=== PATIENT | male | born 1965 | race Caucasian/White ===

== ENCOUNTER 2019-05-05 12:23 | Emergency (ER) | payer OTHER ==
[2019-05-05 12:30] VITALS: BP 153/84; PULSE 58; TEMP 98; BMI 21.4
[2019-05-05] MEDS ORDERED: KETOROLAC TROMETHAMINE 30 MG/1 ML VIAL IM ONE (14:31)
[2019-05-05] MEDS ORDERED: diazePAM 5 MG TABLET PO ONE (14:31)
[2019-05-05] MEDS ORDERED: KETOROLAC TROMETHAMINE 30 MG/1 ML VIAL ONE (14:35)
[2019-05-05] MEDS ORDERED: diazePAM 5 MG TABLET ONE (14:36)
--- NOTE | 2019-05-05 14:37 | PDOC ---
History of Present Illness - General Chief Complaint: Back Pain Stated Complaint: BACK PAIN Time Seen by Provider: 05/05/19 13:58 History Source: Patient Exam Limitations: No Limitations - History of Present Illness Initial Comments: 05/05/19 14:32 53 year old male with medical history of asthma, bronchitis presents with reports of pain in lower back, upper right shoulder and stiffness in neck since last night. Patient reports no injuries or fall, states has history of surgery of right shoulder and right side of head from childhood when he had a fall from a building. Denies numbness or tingling in lower legs. States he took 4 tabs of advil that relieved the pain. 05/05/19 14:34 Occurred: reports: yesterday Severity: reports: moderate Pain Location: reports: back Method of Injury: Yes: unknown Modifying Factors: improves with: pain medication Loss of Consciousness: no loss of consciousness Associated Symptoms (Fall): neck pain Past History - Travel Traveled outside of the country in the last 30 days: No Close contact w/someone who was outside of country & ill: No - Past Medical History Allergies/Adverse Reactions: Allergies Allergy/AdvReac Type Severity Reaction Status Date / Time Penicillins Allergy Mild GI upset Verified 05/05/19 12:30 Home Medications: Ambulatory Orders Cyclobenzaprine HCl [Flexeril -] 5 mg PO TID #21 tablet 05/05/19 Naproxen [Naprosyn -] 500 mg PO BID #14 tablet 05/05/19 Asthma: Yes COPD: No - Psycho Social/Smoking Cessation Hx Smoking Status: Yes Smoking History: Never smoked Number of Cigarettes Smoked Daily: 5 'Breaking Loose' booklet given: 08/07/14 Hx Alcohol Use: No Drug/Substance Use Hx: No Substance Use Type: None Hx Substance Use Treatment: No Trauma Specific PMHX - Complaint Specific PMHX Arthritis: No Back Injury: No Hx Sacro Iliac Joint Dysfunction: No Review of Systems - Review of Systems Able to Perform ROS?: Yes Is the patient limited Scottish proficient: No Constitutional: No: Chills, Fever HEENTM: No: Nose Pain, Nose Congestion, Throat Pain, Throat Swelling Respiratory: No: Shortness of Breath, Wheezing Cardiac (ROS): No: Edema, Palpitations ABD/GI: No: Abdominal Distended, Constipated, Nausea, Poor Appetite Musculoskeletal: Yes: Back Pain, Neck Pain. No: Joint Pain, Muscle Pain, Muscle Weakness Integumentary: No: Bruising, Erythema Neurological: No: Numbness, Paresthesia, Weakness Psychiatric: No: Frequent Crying, Stressors Hematologic/Lymphatic: No: Blood Clots, Bleeding Diathesis *Physical Exam - Vital Signs Last Vital Signs Temp Pulse Resp BP Pulse Ox 98 F 58 L 18 153/84 100 05/05/19 12:27 05/05/19 12:27 05/05/19 12:27 05/05/19 12:27 05/05/19 12:27 - Physical Exam General Appearance: Yes: Nourished, Appropriately Dressed HEENT: positive: TMs Normal, Pharynx Normal. negative: Sinus Tenderness Neck: positive: Supple. negative: Lymphadenopathy (R), Lymphadenopathy (L) Respiratory/Chest: positive: Lungs Clear Cardiovascular: positive: Regular Rhythm, Regular Rate Gastrointestinal/Abdominal: negative: Distended, Guarding, Rebound, Hepatomegaly Musculoskeletal: positive: Normal Inspection. negative: Vertebral Tenderness Extremity: positive: Normal Capillary Refill Integumentary: negative: Jaundice, Diaphoresis, Moist Neurologic: positive: rough rounder machine II-XII NML intact, Fully Oriented Medical Decision Making - Medical Decision Making 05/05/19 14:36 53 year old male with medical history of asthma, bronchitis presents with reports of pain in lower back, upper right shoulder and stiffness in neck since last night. Patient reports no injuries or fall, states has history of surgery of right shoulder and right side of head from childhood when he had a fall from a building. Imp: back pain Plan: analgesia and muscle relaxant 05/05/19 15:49 pain much better, patient more relaxed, appears less tense 05/05/19 15:54 Discharge - Discharge Information Problems reviewed: Yes Clinical Impression/Diagnosis: Lower back pain Qualifiers: Chronicity: acute Back pain laterality: left Sciatica presence: without sciatica Qualified Code(s): M54.5 - Low back pain Condition: Good Disposition: HOME - Admission No - Additional Discharge Information Prescriptions: Cyclobenzaprine HCl [Flexeril -] 5 mg PO TID #21 tablet Naproxen [Naprosyn -] 500 mg PO BID #14 tablet - Follow up/Referral Referrals: Giovani Bauer MD [Staff Physician] - (for back evaluation) - Patient Discharge Instructions Patient Printed Discharge Instructions: Low Back Pain Additional Instructions: Activity as tolerated Take medication as prescribed. Call orthopedic for follow up appointment - Post Discharge Activity Work/Back to School Note: Back to Work
== END 2019-05-05 16:05 | disposition home or self-care (01) ==
LOC: JERFT 12:23
PROC: 3E0233Z Introduction of Anti-inflammatory into Muscle, Percutaneous Approach (ICD-10-PCS; principal; 2019-05-05)
DX: M54.5 Low back pain (principal); Z87.09 Personal history of other diseases of the respiratory system; Z88.0 Allergy status to penicillin
CPT/HCPCS: 96372; 99282-25

== ENCOUNTER 2020-10-05 06:45 | Emergency (ER) | payer OTHER ==
[2020-10-05 07:09] VITALS: BP 143/94; PULSE 65; TEMP 98.2; BMI 20.9
[2020-10-05] MEDS ORDERED: ACETAMINOPHEN/CAFFEINE/BUTALBITAL 1 TAB PO ONE (07:30)
[2020-10-05] MEDS ORDERED: KETOROLAC TROMETHAMINE 30 MG/1 ML VIAL IVPUSH ONE (07:30)
[2020-10-05] MEDS ORDERED: ACETAMINOPHEN/CAFFEINE/BUTALBITAL 1 TAB ONE (07:35)
[2020-10-05] MEDS ORDERED: KETOROLAC TROMETHAMINE 30 MG/1 ML VIAL ONE (07:35)
[2020-10-05 08:33] LABS: BASO % 0.5 % (0-2.0); EOS % 1.1 % (0-4.5); HEMATOCRIT 50.9 % (35.4-49); HEMOGLOBIN 17.4 GM/dL (11.7-16.9); MCH 32.5 pg (25.7-33.7); MCHC 34.2 g/dl (32.0-35.9); MEAN CELL VOLUME 95.1 fl (80-96); MONO % 7.8 % (3.8-10.2); NEUT % 72.6 % (42.8-82.8); PLATELET COUNT 151 10^3/uL (134-434); RBC 5.36 M/mm3 (4.00-5.60); RDW 13.1 % (11.9-15.9); WHITE BLOOD COUNT 9.7 K/mm3 (4.0-10.0)
[2020-10-05 08:51] LABS: CHLORIDE 108 mmol/L (98-107); SODIUM 139 mmol/L (136-145)
[2020-10-05 08:53] LABS: ANION GAP 5 MMOL/L (8-16); CALCIUM 9.7 mg/dL (8.5-10.1); CO2 26 mmol/L (21-32); GLUCOSE,RANDOM 95 mg/dL (74-106)
[2020-10-05 08:54] LABS: ALBUMIN 4.8 g/dl (3.4-5.0)
[2020-10-05 08:56] LABS: CREATININE 0.9 mg/dL (0.55-1.3)
[2020-10-05 08:57] LABS: SGOT/AST 20 U/L (15-37); SGPT/ALT 29 U/L (13-61)
[2020-10-05 08:58] LABS: TOT PROT 7.7 g/dl (6.4-8.2)
[2020-10-05 08:59] LABS: ALK PHOS 75 U/L (45-117)
== END 2020-10-05 10:22 ==
LOC: JER 06:45
PROC: 3E0333Z Introduction of Anti-inflammatory into Peripheral Vein, Percutaneous Approach (ICD-10-PCS; principal; 2020-10-05)
DX: G44.209 Tension-type headache, unspecified, not intractable (principal)
CPT/HCPCS: 36415; 70450-TC; 80053; 84484; 85025; 93005; 93010; 99285-25

== ENCOUNTER 2022-01-27 06:38 | Emergency (ER) | payer OTHER ==
[2022-01-27 06:51] VITALS: BP 133/91; PULSE 81; RESP 20; BMI 21.9
[2022-01-27] MEDS ORDERED: SODIUM CHLORIDE 0.9% 500 ML INFUS.BAG IV ONE (07:24)
[2022-01-27] MEDS ORDERED: ACETAMINOPHEN 1000 MG/100 ML BAG IVPB ONE (07:24)
[2022-01-27] MEDS ORDERED: METOCLOPRAMIDE HCL INJECTION 10 MG/2 ML VIAL IVPUSH ONE (07:25)
[2022-01-27] MEDS ORDERED: ACETAMINOPHEN INJECTION 100 ML IVPB ONE (07:44)
[2022-01-27] MEDS ORDERED: METOCLOPRAMIDE HCL INJECTION 10 MG/2 ML VIAL ONE (07:44)
== END 2022-01-27 09:11 | disposition home or self-care (01) ==
LOC: JER 06:38
PROC: 3E0333Z Introduction of Anti-inflammatory into Peripheral Vein, Percutaneous Approach (ICD-10-PCS; principal; 2022-01-27)
PROC: 3E033GC Introduction of Other Therapeutic Substance into Peripheral Vein, Percutaneous Approach (ICD-10-PCS; 2022-01-27)
DX: G44.89 Other headache syndrome (principal)
CPT/HCPCS: 99284-25

== ENCOUNTER 2022-09-20 11:11 | Emergency (ER) | payer OTHER ==
[2022-09-20 11:19] VITALS: TEMP 98.2; BMI 22.5
[2022-09-20] MEDS ORDERED: SODIUM CHLORIDE 1,000 ML IV STA (11:37)
[2022-09-20] MEDS ORDERED: ACETAMINOPHEN 1000 MG/100 ML BAG IVPB ONE (11:38)
[2022-09-20] MEDS ORDERED: ACETAMINOPHEN INJECTION 100 ML IVPB ONE (11:58)
[2022-09-20 12:08] LABS: BASO % 0.6 % (0-2.0); EOS % 0.6 % (0-4.5); HEMATOCRIT 44.7 % (35.4-49); HEMOGLOBIN 15.6 GM/dL (11.7-16.9); LYMPH % 20.9 % (8-40); MCH 32.8 pg (25.7-33.7); MCHC 34.9 g/dl (32.0-35.9); MEAN PLT VOLUME 8.9 fl (7.5-11.1); MONO % 7.5 % (3.8-10.2); NEUT % 70.4 % (42.8-82.8); PLATELET COUNT 142 10^3/uL (134-434); RBC 4.76 M/mm3 (4.00-5.60); WHITE BLOOD COUNT 8.7 K/mm3 (4.0-10.0)
[2022-09-20 12:18] LABS: INR 1.14 (0.83-1.09); PROTHROMBIN TIME (PATIENT) 13.2 SEC (9.7-13.0)
[2022-09-20 12:20] LABS: POTASSIUM 4.1 mmol/L (3.5-5.1)
[2022-09-20 12:21] LABS: ACTIVATED PTT 28.6 SECONDS (25.2-36.5)
[2022-09-20 12:22] LABS: CALCIUM 9.5 mg/dL (8.5-10.1)
[2022-09-20 12:23] LABS: BLOOD UREA NITROGEN 20.2 mg/dL (7-18); MAGNESIUM 2.1 mg/dL (1.8-2.4)
[2022-09-20 12:26] LABS: CREATININE 0.9 mg/dL (0.55-1.3)
[2022-09-20 12:27] LABS: BILIRUBIN,TOTAL 0.6 mg/dL (0.2-1); TOT PROT 6.8 g/dl (6.4-8.2)
[2022-09-20] MEDS ORDERED: LIDOCAINE 5% TOPICAL PATCH TP ONE (13:54)
[2022-09-20] MEDS ORDERED: LIDOCAINE 5% TOPICAL PATCH ONE (14:08)
[2022-09-20 14:09] VITALS: BP 115/91; PULSE 54; RESP 16
[2022-09-20 14:48] LABS: PH,URINE 5.5 (5.0-8.0); URINE APPEARANCE CLEAR; URINE BILIRUBIN NEGATIVE (NEGATIVE); URINE COLOR YELLOW; URINE GLUCOSE (UA) NEGATIVE (NEGATIVE); URINE KETONE NEGATIVE (NEGATIVE); URINE LEUK ESTERASE NEGATIVE (NEGATIVE); URINE NITRITE NEGATIVE (NEGATIVE); URINE PROTEIN NEGATIVE (NEGATIVE); URINE UROBILINOGEN 0.2 mg/dL (0.2-1.0)
== END 2022-09-20 14:19 | disposition home or self-care (01) ==
LOC: JER 11:11
PROC: 3E033NZ Introduction of Analgesics, Hypnotics, Sedatives into Peripheral Vein, Percutaneous Approach (ICD-10-PCS; principal; 2022-09-20)
PROC: 3E0337Z Introduction of Electrolytic and Water Balance Substance into Peripheral Vein, Percutaneous Approach (ICD-10-PCS; 2022-09-20)
DX: M54.41 Lumbago with sciatica, right side (principal); R42 Dizziness and giddiness
CPT/HCPCS: 36415; 70450-TC; 72131-TC; 80053; 81003; 83735; 84484; 85025; 85610; 85730; 87077; 87086; 93005; 93010; 99285-25